=== PATIENT | female | born 1940 | race Caucasian/White ===

== ENCOUNTER 2020-08-09 14:00 | Outpatient (CLI) | payer MEDICARE, OTHER, SELFPAY ==
--- NOTE | 2020-08-09 14:07 | XR_ITS ---
WS: [id number] SCREENING DEXA SCAN [facility] CLINICAL INFORMATION: POSTMENOPAUSAL COMPARISON: 2018 FINDINGS: The L1-L4 bone mineral density measures 0.868 g/cm2. This corresponds to a T score score of -2.6 and Z score of -0.4. Left femoral neck bone mineral density measures 0.775 g/cm2. This corresponds to a T score of -1.8 an d Z score of 0.4. Right femoral neck bone mineral density measures 0.783 g/cm2. This corresponds to a T score -1.8of an d Z score of 0.5. Mean femoral neck bone mineral density measures 0.779 g/cm2. This corresponds to a T score of -1.8 an d Z score of 0.5. XR/XR DEXA axial skeleton* [id number] IMPRESSION: Osteoporosis lumbar spine and osteopenia in the femoral necks. Patient's FRAX calculated 10 year probability for major osteoporotic fracture i s 17.2 % and osteoporotic hip fracture is 6.3%.
== END 2020-08-09 14:01 | disposition home or self-care (01) ==
LOC: RADWPI 14:07
PROVIDERS: PCP Family Medicine; Visit Provider Family Medicine
DX: Z78.0 Asymptomatic menopausal state (principal); M81.0 Age-related osteoporosis without current pathological fracture
CPT/HCPCS: 77080

== ENCOUNTER 2021-08-07 09:53 | Outpatient (CLI) | payer MEDICARE, OTHER, SELFPAY ==
--- NOTE | 2021-08-07 10:04 | XR_ITS ---
WS: [id number] Chest with right rib detail, 4 views, 08/07/2021 Clinical Data: RIGHT SIDED CHEST PAIN Comparison: PA chest, 10/27/2016. Findings: The lungs show no nodules, masses, or effusions. The heart is normal. There is a patchy right upper l obe opacity which could represent acute pneumonia.The left lung is clear. No pneumothorax is present. The ribs are intact. No rib fractures seen. No subcutaneous emphysema is present. XR/XR ribs RT mn 3V w CXR1V [id number] Impression: 1. Minimal patchy right upper lobe opacity which could represent acute pneumoni a and recommend repeat chest x-ray in 2-3 days. 2. Negative right rib detail.
== END 2021-08-07 09:54 | disposition home or self-care (01) ==
LOC: RAD 09:58
PROVIDERS: PCP Family Medicine; Visit Provider Family Medicine
DX: R07.9 Chest pain, unspecified (principal)
CPT/HCPCS: 71101

== ENCOUNTER 2021-08-26 09:57 | Outpatient (CLI) | payer MEDICARE, OTHER, SELFPAY ==
--- NOTE | 2021-08-26 10:09 | XRR_ITS ---
PROCEDURE INFORMATION: Exam: XR Chest Exam date and time: 08/26/2021 10:35 AM Age: 80 years old Clinical indication: Condition or disease; Lung condition and disease; Pneumonia TECHNIQUE: Imaging protocol: XR of the chest. Views: 2 views. COMPARISON: CR XR ribs RT mn 3V w CXR1V [id number] 08/07/2021 10:17 AM FINDINGS: Lungs: Unremarkable. Prior pneumonia in the right upper lobe on prior examination has now resolved. Pleural spaces: Unremarkable. No pleural effusion. No pneumothorax. Heart/Mediastinum: Unremarkable. No cardiomegaly. Bones/joints: There is generalized osteopenia seen. Compression fractures are present involving the T11 and L1 vertebral bodies XR/XR chest 2V* [id number] IMPRESSION: 1. No acute findings. 2. The generalized osteopenia is seen. 3. Compression fractures T11 and L1 vertebral bodies
== END 2021-08-26 09:58 | disposition home or self-care (01) ==
LOC: RAD 10:02
PROVIDERS: PCP Family Medicine; Visit Provider Family Medicine
DX: J18.9 Pneumonia, unspecified organism (principal); S22.089A Unspecified fracture of T11-T12 vertebra, initial encounter for closed fracture; S32.019A Unspecified fracture of first lumbar vertebra, initial encounter for closed fracture; X58.XXXA Exposure to other specified factors, initial encounter; M85.80 Other specified disorders of bone density and structure, unspecified site
CPT/HCPCS: 71046

== ENCOUNTER 2023-02-02 10:25 | Outpatient (CLI) | payer MEDICARE, OTHER, SELFPAY ==
--- NOTE | 2023-02-02 10:41 | XR_ITS ---
WS: [email or web address] XR thoracic spine 2V [id number] REASON FOR EXAM: RADICULOPATHY,LUMBAR REGION FINDINGS: Mild lower thoracic scoliosis convex right. Mild dorsal kyphosis. Significant compression deformity of the superior endplate of T11. No other significant thoracic vert ebral body abnormality. Mild narrowing of the intervertebral disc spaces with mild endplate sclerosis and small anterior oste ophytosis in the mid and lower thoracic spine. IMPRESSION: Mild scoliosis and kyphosis. Compression deformity of unknown chronicity of T11. Degenerative spondylosis.
--- NOTE | 2023-02-02 10:41 | XR_ITS ---
WS: [email or web address] XR lumbar spine 2-3V* [id number] REASON FOR EXAM: RADICULOPATHY, LUMBAR REGION FINDINGS: Lumbar spine is relatively unchanged compared to 06/06/2018. Relatively normal lumbar spine curvatures. Chronic chronic wedge-shaped compression deformity of L1. No significant abnormality of the remaining lumbar vertebrae. The intervertebral disc spaces are intact and relatively well preserved for age. Anterior osteophytosis L1-L5. Moderate degenerative arthropathy in the facet joints L4-S1. No significant neutral listhesis. IMPRESSION: Chronic L1 deformity. Degenerative spondylosis as above.
== END 2023-02-02 10:26 | disposition home or self-care (01) ==
LOC: RAD 10:32
PROVIDERS: PCP Family Medicine; Visit Provider Family Medicine
DX: M54.16 Radiculopathy, lumbar region (principal); M47.814 Spondylosis without myelopathy or radiculopathy, thoracic region; M41.84 Other forms of scoliosis, thoracic region; M43.9 Deforming dorsopathy, unspecified
CPT/HCPCS: 72070; 72100

== ENCOUNTER 2024-04-03 11:06 | Outpatient (CLI) | payer MEDICARE, OTHER, SELFPAY ==
--- NOTE | 2024-04-03 11:18 | XR_ITS ---
WS: [id number] Exam: XR finger LT min 2V [id number] Date/Time of Exam: 04/03/2024 11:35 AM Reason For Exam: OTHER SPECIFIED SOFT TISSUE DISORDERS The thumb is targeted for radiographic evaluation. No fracture or dislocation noted. Early degenerative changes at the MP joint and the CMC joint. No so ft tissue foreign bodies. XR/XR finger LT min 2V [id number] IMPRESSION: 1. Degenerative changes. No fracture.
== END 2024-04-03 11:07 | disposition home or self-care (01) ==
LOC: RAD 11:08
PROVIDERS: PCP Family Medicine; Visit Provider Family Medicine
DX: M19.042 Primary osteoarthritis, left hand (principal); M79.89 Other specified soft tissue disorders
CPT/HCPCS: 73140

== ENCOUNTER → 2024-05-05 08:50 | Outpatient (BNVA) | payer MEDICARE, OTHER, SELFPAY | PROVIDERS: PCP Family Medicine; Visit Provider Podiatrist Foot & Ankle Surgery | DX: M20.11 Hallux valgus (acquired), right foot; M20.12 Hallux valgus (acquired), left foot; L85.3 Xerosis cutis; L84 Corns and callosities | CPT/HCPCS: 73630; 99203 ==

== ENCOUNTER 2024-06-02 08:14 | Outpatient (CLI) | payer MEDICARE, OTHER, SELFPAY ==
--- NOTE | 2024-06-02 08:29 | XR_ITS ---
WS: [email or web address] XR chest 2V* [id number] REASON FOR EXAM: DRY COUGH FINDINGS: The chest is unchanged compared to 08/26/2021. Mild tortuosity of the thoracic aorta. Normal heart size. Calcified granulomatous disease centrally bilaterally. Flattening of the hemidiaphragms with the expansion of the anterior clear space. No acute pulmonary parenchymal or pleural abnormality. Chronic compression deformities of T12 and L1. XR/XR chest 2V* [id number] IMPRESSION: Stable abnormal chest. Likely obstructive lung disease. No acute chest abnormal ity.
== END 2024-06-02 08:15 | disposition home or self-care (01) ==
PROVIDERS: PCP Family Medicine; Visit Provider Family Medicine
DX: R05.8 Other specified cough (principal); Q25.46 Tortuous aortic arch; D71 Functional disorders of polymorphonuclear neutrophils; R93.89 Abnormal findings on diagnostic imaging of other specified body structures; M43.8X4 Other specified deforming dorsopathies, thoracic region; M43.8X6 Other specified deforming dorsopathies, lumbar region
CPT/HCPCS: 71046

== ENCOUNTER 2024-06-08 12:43 | Outpatient (CLI) | payer MEDICARE, OTHER, SELFPAY ==
--- NOTE | 2024-06-08 12:49 | XR_ITS ---
WS: [id number] DEXA (DUAL ENERGY X-RAY ABSORPTIOMETRY) Bone mineral density was performed using a [employer] machine. HISTORY: POSTMENOPAUSAL COMPARISON: 08/09/2020 Lumbar spine BMD (L1-L4): 0.872 g/cm2 T score: -2.6 Z score: -0.3 Total hip BMD: Left: 0.756 g/cm2. T score: -2.0 Z score: 0.5 Right: 0.747 g/cm2. T score: -2.1 Z score: 0.4 10 year probability of a major osteoporotic fracture is 16.5%. Compared to the prior study from 08/09/2020. Lumbar spine bone mineral density has increased by 0.5%. Bilateral hips bone mineral density has decreased by 3.5%. XR/XR DEXA axial skeleton* [id number] IMPRESSION: OSTEOPOROSIS based upon the WHO classification for females. Significant decrease in bone mineral density within the hips since the prior . No significant change within the lumbar spine.
== END 2024-06-08 12:44 | disposition home or self-care (01) ==
LOC: RAD 12:46
PROVIDERS: PCP Family Medicine; Visit Provider Family Medicine
DX: Z78.0 Asymptomatic menopausal state (principal); M81.0 Age-related osteoporosis without current pathological fracture
CPT/HCPCS: 77080

== ENCOUNTER → 2024-09-13 10:29 | Outpatient (BNVA) | payer MEDICARE, OTHER, SELFPAY | PROVIDERS: PCP Family Medicine; Referring Provider Family Medicine; Visit Provider Internal Medicine | DX: M81.0 Age-related osteoporosis without current pathological fracture (principal); Z87.81 Personal history of (healed) traumatic fracture; E55.9 Vitamin D deficiency, unspecified; L65.9 Nonscarring hair loss, unspecified | CPT/HCPCS: 36415; 80053; 82306; 82310; 83970; 84439; 84443; 99204 ==

== ENCOUNTER → 2024-10-10 13:04 | Outpatient (BNVA) | payer MEDICARE, OTHER, SELFPAY | PROVIDERS: PCP Family Medicine; Visit Provider Nurse Practitioner Family | DX: D22.72 Melanocytic nevi of left lower limb, including hip (principal); L81.4 Other melanin hyperpigmentation; L82.1 Other seborrheic keratosis; L57.8 Other skin changes due to chronic exposure to nonionizing radiation; X32.XXXA Exposure to sunlight, initial encounter | CPT/HCPCS: 11102; 17000; 17110; 99203 ==

== ENCOUNTER 2024-11-06 11:56 | Outpatient (CLI) | payer MEDICARE, SELFPAY ==
--- NOTE | 2024-11-06 12:02 | CTR_ITS ---
PROCEDURE INFORMATION: Exam: CT Chest With Contrast; Diagnostic Exam date and time: 11/06/2024 1:44 PM Age: 84 years old Clinical indication: Other: Abnormal weight loss; Prior surgery; Surgery date: 6+ months; Surgery type: Hyst; Weight loss 140-113 in 1 year, left upper quadrant into back pain x 1 year. ; Additional info: Abnormal weight loss/generalized hyperhidrosis/melanoma TECHNIQUE: Imaging protocol: Diagnostic computed tomography of the chest with contrast. Radiation optimization: All CT scans at this facility use at least one of these dose optimization techniques: automated exposure control; mA and/or kV adjustment per patient size (includes targeted exams where dose is matched to clinical indication); or iterative reconstruction. Contrast material: OMNI 350; Contrast volume: 100 ml; Contrast route: INTRAVENOUS (IV); COMPARISON: CR XR chest 2V* [id number] 06/02/2024 8:33 AM RADIATION DOSE METRICS: Total DLP (mGy-cm): 453.73 FINDINGS: Trachea: Unremarkable. Lungs: There is a small reticulonodular infiltrate in the lingula. No dense focal consolidation is seen. There is a 7 mm nodular density in the left upper lobe (series 4, image 28) without definite calcification. An adjacent enhancing vessel is noted. Pleural spaces: No significant pleural effusion. No pneumothorax. Heart: Normal in size. No significant pericardial effusion. Coronary arteries: No significant atherosclerotic calcification. Mediastinal space: No pathologically enlarged lymph nodes. Lymph nodes: Unremarkable. No enlarged lymph nodes. Vasculature: The thoracic aorta is normal in caliber. No significant atherosclerotic calcification. No aortic aneurysm. Bones/joints: There is diffuse osteopenia. There is anterior wedge deformity of the T6 vertebral body which appears new compared to the prior chest radiograph from June 02, 2024. Stable compression deformities of the T10 and T12 vertebral bodies are also noted. Degenerative changes are present throughout with mild dextroscoliosis. Soft tissues: Unremarkable. Other findings: Visualized upper abdominal structures are unremarkable. (Reference: Zari) REFERENCES: Zari Mendez et al. Guidelines for Management of Incidental Pulmonary Nodules Detected on CT Images: From the Fleischner Society 2017. Radiology. 2017;284(1):228-243. PROCEDURE INFORMATION: Exam: CT Abdomen And Pelvis With Contrast Exam date and time: 11/06/2024 1:44 PM Age: 84 years old Clinical indication: Other: Abnormal weight loss; Prior surgery; Surgery date: 6+ months; Surgery type: Hyst; Weight loss 140-113 in 1 year, left upper quadrant into back pain x 1 year. ; Additional info: Abnormal weight loss/generalized hyperhidrosis/melanoma TECHNIQUE: Imaging protocol: Computed tomography of the abdomen and pelvis with contrast. Radiation optimization: All CT scans at this facility use at least one of these dose optimization techniques: automated exposure control; mA and/or kV adjustment per patient size (includes targeted exams where dose is matched to clinical indication); or iterative reconstruction. Contrast material: OMNI 350; Contrast volume: 100 ml; Contrast route: INTRAVENOUS (IV); COMPARISON: MR thoracic spin wo con* [id number] 09/08/2018 5:27 PM RADIATION DOSE METRICS: Total DLP (mGy-cm): 453.73 FINDINGS: Lungs: Visualized lung bases are clear. Liver: Unremarkable. Gallbladder and biliary ducts: No radiopaque stones. No significant biliary ductal dilatation. Pancreas: Unremarkable. Spleen: Unremarkable. Adrenal glands: Unremarkable. Kidneys and ureters: Unremarkable. No significant hydronephrosis. Stomach and bowel: There is a moderate amount of fecal material throughout the colon.There is no significant bowel dilatation or evidence for obstruction. Appendix: No evidence of appendicitis. Intraperitoneal space: Unremarkable. No free air. No significant fluid collection. Vasculature: The abdominal aorta is normal in caliber. There is moderate diffuse atherosclerotic calcification and mural thrombus. No abdominal aortic aneurysm. Lymph nodes: Unremarkable. No enlarged lymph nodes. Urinary bladder: Unremarkable as visualized. Reproductive: The uterus is absent. Bones/joints: There is mild central wedge deformity of the inferior endplate of L5 with approximately 20% loss of height, new since the prior study. There is an old compression fracture of the L1 vertebral body, likely acute on the prior study. Soft tissues: Unremarkable. CT/CT chest abdpel w/*[id number] IMPRESSION: 1. Small reticulonodular infiltrate in the lingula which could be acute or chronic. 2. Noncalcified 7 mm nodule in the left upper lobe. For patients at low risk (minimal or absent history of smoking and of other known risk factors), recommend CT Chest at 6-12 months, then consider CT Chest at 18-24 months. For patients at high risk (history of smoking or of other known risk factors), recommend CT Chest at 6-12 months, then CT Chest at 18-24 months. IMPRESSION: 1. Mild central wedge deformity of the L5 vertebral body with approximately 20% loss of height. This is age indeterminate, but new since October 27, 2016. 2. Moderate amount of fecal material throughout the colon. No significant bowel dilatation or evidence for obstruction. 3. Other chronic findings described above.
[2024-11-06] MEDS: iohexol 350 mg/mL 500 mL Btl (per mL) PO (13:47)
[2024-11-06] MEDS: iohexol 350 mg/mL 500 mL Btl (per mL) IV (13:47)
== END 2024-11-06 11:57 | disposition home or self-care (01) ==
LOC: RAD 11:58
PROVIDERS: PCP Family Medicine; Visit Provider Nurse Practitioner Adult Health
DX: R91.1 Solitary pulmonary nodule (principal); M48.56XA Collapsed vertebra, not elsewhere classified, lumbar region, initial encounter for fracture; R63.4 Abnormal weight loss; R61 Generalized hyperhidrosis; C43.60 Malignant melanoma of unspecified upper limb, including shoulder
CPT/HCPCS: 71260; 74177

== ENCOUNTER → 2024-11-08 13:57 | Outpatient (BNVA) | payer MEDICARE, SELFPAY | PROVIDERS: PCP Family Medicine; Visit Provider Dermatology | DX: R59.0 Localized enlarged lymph nodes (principal); R53.83 Other fatigue; R63.4 Abnormal weight loss; C43.62 Malignant melanoma of left upper limb, including shoulder; D48.5 Neoplasm of uncertain behavior of skin | CPT/HCPCS: 11102; 11604; 12034; 99213 ==

== ENCOUNTER 2024-11-16 07:31 | Outpatient (CLI) | payer MEDICARE, SELFPAY ==
--- NOTE | 2024-11-16 07:46 | CT_ITS ---
WS: [id number] CT HEAD TECHNIQUE: Noncontrast and contrast-enhanced CT of the head. CLINICAL INFORMATION: MALIGNANT MELANOMA OF LEFT UPPER LIMB,INCLUDING SHOULDER DLP: 2323.[address] scans at [facility] use at least one of these dose optimization techniques: automated exposure control; mA and/or kV adjustment per patient size (includes targeted exams where dose is matched to clinical indication); or iterative reconstruction. FINDINGS: No evidence of intracranial hemorrhage or mass effect. Ventricular system and basal cisterns are patent. No evidence of enhancing intracranial metastatic disease. Tiny chronic lacunar infarct RIGHT caudate and RIGHT basal ganglia. Tiny lacunar chronic infarct RIGHT pereyra radiata. Mild mucosal thickening in the ethmoid air cells. Trace fluid in the RIGHT maxillary sinus. Mastoid air cells are well aerated. Normal posterior nasopharynx. Normal basilar cisterns. No extra-axial fluid collections. Mild small vessel changes. Mild parenchymal volume loss. CT/CT head wo/w con [id number] IMPRESSION: 1. No evidence of enhancing intracranial metastatic disease. 2. Mild small vessel changes with mild parenchymal volume loss. 3. Tiny chronic lacunar infarcts described above. 4. Mild inflammatory changes in the paranasal sinuses.
--- NOTE | 2024-11-16 07:46 | CT_ITS ---
WS: [id number] CT NECK TECHNIQUE: Contrast-enhanced CT of the neck with coronal and sagittal reformatted images. CLINICAL INFORMATION: MALIGNANT MELANOMA OF L UPPER LIMB, INCLUDING SHOULDER COMPARISON: None. DLP: 2323.[address] scans at [facility] use at least one of these dose optimization techniques: automated exposure control; mA and/or kV adjustment per patient size (includes targeted exams where dose is matched to clinical indication); or iterative reconstruction. FINDINGS: Enhancing soft tissue along the LEFT tongue base near the lingual tonsil measuring 1.0 x 1.0 cm. This is indeterminate and recommend further evaluation with direct for direct visualization/endoscopy Normal parotid glands. Normal submandibular glands. Normal vallecula and epiglottis. Normal piriform sinuses. Normal glottis and subglottic airway. A few small subcentimeter thyroid nodules. Aortic calcification. Moderate atheromatous plaque RIGHT carotid bulb with approximately 50% stenosis. This could be further evaluated with CTA or ultrasound for more detailed evaluation. Moderate atheromatous plaque LEFT carotid bulb. No cervical lymphadenopathy. Lung apices are well aerated. CT/CT neck w con* [id number] IMPRESSION: 1. Enhancing soft tissue along the LEFT tongue base near the lingual tonsil me asuring 1.0 x 1.0 cm. This is indeterminate and recommend further evaluation wi th direct visualization/endoscopy. 2. No cervical lymphadenopathy. 3. Approximate 50% RIGHT ICA stenosis with moderate Atheromatous plaque. This could be further evaluated with CTA or ultrasound. 4. No other acute findings
[2024-11-16 08:21] LABS: Blood Urea Nitrogen 15 mg/dL (8-23)
[2024-11-16] MEDS: iohexol 350 mg/mL 500 mL Btl (per mL) IV (08:43)
== END 2024-11-16 07:32 | disposition home or self-care (01) ==
PROVIDERS: PCP Family Medicine; Visit Provider Dermatology
DX: C43.62 Malignant melanoma of left upper limb, including shoulder (principal); I65.21 Occlusion and stenosis of right carotid artery
CPT/HCPCS: 36415; 70470; 70491; 82565; 83615; 84520

== ENCOUNTER → 2024-11-24 10:16 | Outpatient (BNVA) | payer MEDICARE, OTHER, SELFPAY | PROVIDERS: PCP Family Medicine; Visit Provider Dermatology | DX: C43.62 Malignant melanoma of left upper limb, including shoulder (principal); D22.72 Melanocytic nevi of left lower limb, including hip | CPT/HCPCS: 99213 ==

== ENCOUNTER → 2025-01-29 09:39 | Outpatient (BNVA) | payer MEDICARE, OTHER, SELFPAY | PROVIDERS: PCP Family Medicine; Visit Provider Dermatology | DX: L82.1 Other seborrheic keratosis (principal); L57.8 Other skin changes due to chronic exposure to nonionizing radiation; Z85.820 Personal history of malignant melanoma of skin; Z87.2 Personal history of diseases of the skin and subcutaneous tissue; Z08 Encounter for follow-up examination after completed treatment for malignant neoplasm; Z85.828 Personal history of other malignant neoplasm of skin | CPT/HCPCS: 99213 ==